=== PATIENT | female | born 1990 | race Caucasian/White ===

== ENCOUNTER 2022-11-08 13:55 | Emergency (ER) | payer BC ==
[~2022-11-08] VITALS: Ht 165.1 cm; Wt 68.9 kg
[2022-11-08] MEDS ORDERED: ONDANSETRON 4 MG/2 ML VIAL IV ONE (14:15)
[2022-11-08] MEDS ORDERED: IV NORMAL SALINE 1000 ML BAG IV ONE (14:15)
[2022-11-08] MEDS ORDERED: ONDANSETRON 4 MG/2 ML VIAL ONE (14:24)
[2022-11-08 14:30] LABS: *BILIRUBIN,URIN NEGATIVE (NEGATIVE); *BLOOD, URINE 2+ (NEGATIVE); *CLARITY,URINE CLEAR (CLEAR); *COLOR,URINE YELLOW (YELLOW); *KETONES,URINE NEGATIVE (NEGATIVE); *UROBILINOGEN,URINE 0.2 E.U./dl (NORMAL); LEUKOCYTE ESTERASE ,URINE 3+ (NEGATIVE); NITRITE, URINE NEGATIVE (NEGATIVE); PH,URINE 6.5 (5.0-8.0); UGLUCOSE NEGATIVE (NEGATIVE)
[2022-11-08 14:46] LABS: CREATININE 0.9 mg/dL (0.6-1.3); POTASSIUM 4.1 mmol/L (3.5-5.1)
[2022-11-08 14:52] LABS: BILIRUBIN,DIRECT 0.1 mg/dL (0.0-0.2); BILIRUBIN,TOTAL 0.4 mg/dL (0.2-1.0); TOTAL PROTEIN, SERUM 7.5 g/dL (6.4-8.2)
[2022-11-08] MEDS ORDERED: MECLIZINE HCL 25 MG TABLET PO ONE (15:15)
[2022-11-08 15:29] LABS: HEMATOCRIT 39.3 % (31.2-41.9); MEAN CORPUSCULAR HEMOGLOBIN 29.8 uug (24.7-32.8); MEAN CORPUSCULAR VOLUME 90.3 fL (75.5-95.3); PLATELET COUNT (AUTO) 201 K/uL (179-408)
[2022-11-08] MEDS ORDERED: MECLIZINE HCL 25 MG TABLET ONE (15:38)
[2022-11-08] MEDS ORDERED: MECL-159 PO (16:13)
[2022-11-08] MEDS ORDERED: ONDA4TAB5 PO (16:13)
--- NOTE | 2022-11-08 16:22 | NUR ---
IV removed. Catheter intact and site benign. Pressure and 4x4 gauze applied to site. No bleeding noted.
--- NOTE | 2022-11-08 16:23 | NUR ---
Patient discharged to home in stable condition. Written and verbal after care instructions given. Patient verbalizes understanding of instructions. Stressed follow up or return to ER for worsening s/s.
[2022-11-08 16:44] LABS: BACTERIA,URINE NONE SEEN /HPF (NONE SEEN); RBC,URINE 0-3 /HPF (0-3); SQUAMOUS EPITHELIAL CELL,UR FEW /HPF (NONE SEEN)
== END 2022-11-08 16:24 | disposition home or self-care (01) ==
LOC: ER 13:55
DX: R55 Syncope and collapse (principal); R42 Dizziness and giddiness; R10.2 Pelvic and perineal pain
CPT/HCPCS: 99284; 96360; 80076; 80048; 81001; 83690; 84443; 85025; 84702; 36415; 93005; 87040; J2405; J7040; A4663; J8597